=== PATIENT | female | born 1980 | race American Indian/Alaskan Native ===

== ENCOUNTER 2016-04-25 12:15 | Day surgery (SDC) | payer MEDICAID ==
--- NOTE | 2016-04-25 14:33 | Short Stay Summary ---
Short Stay Documentation Date of service: 04/25/16 - History Principal diagnosis: left thyroid nodule H&P: obtained from office - Allergies and Medications Current Medications: Allergies No Known Allergies Allergy (Verified 04/25/16 12:30) Home Medications Medication Instructions Recorded Confirmed Last Taken Type Meloxicam [Mobic] 7.5 mg PO QDAY 04/25/16 04/25/16 04/24/16 History - Physical exam General appearance: no acute distress HEENT: Atraumatic, PERRLA, Mucous membr. moist/pink - Brief post op/procedure progress note Date of procedure: 04/25/16 Pre-op diagnosis: left thyroid nodule Post-op diagnosis: same Procedure: US thyroid biopsy Anesthesia: local Surgeon: PARISH SMILEY Estimated blood loss: none Pathology: list (biopsy,FNA) Specimen disposition: to lab Condition: stable - Disposition Condition at discharge: Good Disposition: DISCHARGED TO HOME OR SELFCARE
[2016-04-25 14:37] VITALS: BP 119/51
[2016-04-25] MEDS ORDERED: NORCO 5/325 PO ONE (14:43)
--- NOTE | 2016-04-25 15:09 | Ultrasound Report ---
ULTRASOUND BIOPSY THYROID History: Left thyroid nodule Description of procedure: Informed consent was obtained. Sterile technique was utilized. 1% lidocaine for skin anesthesia. Using ultrasound guidance, fine needle aspiration biopsy was performed on a 2.5 cm slightly complex nodule in mid to inferior left thyroid lobe. The samples were deemed adequate by the pathologist on site. No complications. Impression: Successful ultrasound-guided biopsy of 2.5 cm left thyroid lobe nodule.
== END 2016-04-25 15:07 | disposition home or self-care (01) ==
LOC: OPU 12:15
DX: E04.1 Nontoxic single thyroid nodule (principal)
CPT/HCPCS: 60100; 76942; 88112; 88172; 88173; 88305